=== PATIENT | male | born 1990 | race Caucasian/White ===

== ENCOUNTER 2018-03-11 10:15 | Emergency (ER) | payer OTHER ==
[~2018-03-11] VITALS: Ht 188 cm; Wt 104.3 kg
[2018-03-11] MEDS ORDERED: OMEPRAZOLE40 MG (11:13)
[2018-03-11] MEDS ORDERED: XANAX0.5 MG (11:14)
== END 2018-03-11 12:24 | disposition home or self-care (01) ==
LOC: FSED 10:15
DX: G44.211 Episodic tension-type headache, intractable (principal); F41.1 Generalized anxiety disorder; K21.9 Gastro-esophageal reflux disease without esophagitis; G47.30 Sleep apnea, unspecified
CPT/HCPCS: 70450; 71046; 80053; 82553; 84484; 85025; 93005; 99284